=== PATIENT | female | born 1980 | race Hispanic/Latino ===

== ENCOUNTER 2019-07-16 01:34 | Observation (INO) | payer OTHER ==
[~2019-07-16] VITALS: Ht 157.5 cm; Wt 93.2 kg
[2019-07-16] MEDS ORDERED: ASPIRIN 325 MG TABLET ONE (01:46)
[2019-07-16 02:02] LABS: BASOPHILS % (AUTO) 0.8 % (0.0-5.0); EOSINOPHILS % (AUTO) 7.5 % (0.0-8.0); HEMATOCRIT 31.1 % (36-48); LYMPHOCYTES % (AUTO) 40.8 % (21.0-51.0); MEAN CORPUSCULAR HEMOGLOBIN 24.6 pg (27.0-33.0); MEAN CORPUSCULAR HGB CONC 31.8 g/dL (32.0-36.0); MEAN CORPUSCULAR VOLUME 77.2 fL (79-99); MONOCYTES % (AUTO) 9.4 % (3.0-13.0); NEUTROPHILS % (AUTO) 41.3 % (40.0-77.0); PLATELET COUNT (AUTO) 260 K/uL (130-400); RED BLOOD CELL COUNT(AUTO) 4.03 MIL/uL (4.00-5.50); RED CELL DISTRIBUTION WIDTH 15.1 % (11.0-15.5); WHITE BLOOD COUNT (AUTO) 8.8 K/uL (4.8-10.8)
[2019-07-16 02:12] LABS: CREATININE 0.8 mg/dL (0.5-1.5); INR 0.94 (0.85-1.15); POTASSIUM 4.1 mmol/L (3.5-5.1); PROTHROMBIN TIME 10.2 SEC (9.6-11.6)
[2019-07-16 02:16] LABS: ALBUMIN 3.6 g/dL (3.5-5.0); BILIRUBIN,TOTAL 0.2 mg/dL (0.2-1.0); TOTAL PROTEIN, SERUM 7.4 g/dL (6.0-8.3)
[2019-07-16 02:34] LABS: B-TYPE NATRIURETIC PEPTIDE 11 pg/mL (0-100)
[2019-07-16] MEDS ORDERED: ALBUTEROL INHALER 90MCG/INH IH ONE (03:58)
[2019-07-16] MEDS: SODIUM CHLORIDE 0.9% 1000ML 1,000 ML IV SCH (04:58)
[2019-07-16] MEDS ORDERED: MORPHINE SULFATE 2 MG/ML 1ML SYG IV PRN (05:00)
[2019-07-16] MEDS ORDERED: ONDANSETRON HCL 4 MG/2 ML VIAL IV PRN (05:00)
[2019-07-16] MEDS ORDERED: NITROGLYCERIN 0.4 MG SL TAB SL PRN (05:00)
[2019-07-16] MEDS ORDERED: ACETAMINOPHEN 325 MG TAB PO PRN ×2 (05:00)
[2019-07-16 05:55] VITALS: BP 143/56
[2019-07-16 05:59] LABS: THYROID STIMULATING HORMONE 2.61 uIU/mL (0.36-3.74)
[2019-07-16 08:00] VITALS: BP 118/69
[2019-07-16 08:56] LABS: % IRON SATURATION 3.7 % (22-44)
[2019-07-16] MEDS ORDERED: COMPOUND IV MISC 1 EACH IVSOLN MISC PRN (09:45)
[2019-07-16 11:00] VITALS: BP 115/63
[2019-07-16] MEDS: METOPROLOL TARTRATE 25 MG TAB PO SCH ×2 (12:16→20:45)
[2019-07-16] MEDS: FAMOTIDINE/PF 20 MG/2 ML VIAL IV SCH ×2 (12:17→20:45)
[2019-07-16] MEDS: ENOXAPARIN SODIUM 30 MG/0.3 ML SQ SCH (12:18)
[2019-07-16] MEDS: IRON SUCROSE COMPLEX 100 MG in SODIUM CHLORIDE 0.9% 50 ML IV SCH (13:27)
[2019-07-16 16:00] VITALS: BP 106/61
--- NOTE | 2019-07-16 17:00 | NUR ---
I RECEIVED A CALL FROM DR GIRON STATING PT OK TO BE D/C HOME FROM HIS STANDPOINT AND TO F/U AT HEART CLINIC NEXT FRIDAY FOR A STRESS TEST, THAT HER 2D ECHO WAS NOT THAT BAD; I INFORMED HIM OF MOST RECENT CARDIAC ENZYMES; I THEN CALLED DR TEJADA AND INFORMED HIM OF DR GIRON OK TO D/C AND HE STATED THAT HE WANTED PT TO STATE OVERNIGHT TO CONT MONITORING CARDIAC ENZYMES; PT HAS ANOTHER ONE DUE AT 1800; I HAVE EXPLAINED THIS TO PT AND SHE STATED SHE WICHED SHE COULD GO HOME INSTEAD BUT UNDERSTOOD NEED TO MONITOR HER HEART.
[2019-07-16 19:41] VITALS: BP 128/62
--- NOTE | 2019-07-16 20:15 | NUR ---
CRITICAL LABS TROPONIN 1.26, CALLED HOSPITALIST NOLVIA DICKERSON INFORMED OF TROPONIN LEVEL, PATIENT RESTING COMFORTABLY, NO SOB, NO C/O PAIN AT THIS TIME, TELE SHOWING SINUS RHYTHM HEART RATE 66, AIDE DICKERSON IN ROOM TO SEE AND ASSESS PATIENT WITH ORDERS
[2019-07-16 23:56] VITALS: BP 119/54
[2019-07-17] MEDS: SODIUM CHLORIDE 0.9% 1000ML 1,000 ML IV SCH (01:31)
[2019-07-17 04:00] VITALS: BP 109/60
[2019-07-17 05:23] LABS: BASOPHILS % (AUTO) 0.6 % (0.0-5.0); EOSINOPHILS % (AUTO) 7.2 % (0.0-8.0); HEMATOCRIT 34.5 % (36-48); LYMPHOCYTES % (AUTO) 30.3 % (21.0-51.0); MEAN CORPUSCULAR HEMOGLOBIN 23.8 pg (27.0-33.0); MEAN CORPUSCULAR VOLUME 76.8 fL (79-99); MONOCYTES % (AUTO) 7.9 % (3.0-13.0); NEUTROPHILS % (AUTO) 53.7 % (40.0-77.0); PLATELET COUNT (AUTO) 305 K/uL (130-400); RED BLOOD CELL COUNT(AUTO) 4.49 MIL/uL (4.00-5.50); RED CELL DISTRIBUTION WIDTH 15.1 % (11.0-15.5); WHITE BLOOD COUNT (AUTO) 8.9 K/uL (4.8-10.8)
[2019-07-17 05:54] LABS: ALBUMIN 3.7 g/dL (3.5-5.0); BILIRUBIN,TOTAL 0.3 mg/dL (0.2-1.0); CREATININE 0.8 mg/dL (0.5-1.5); POTASSIUM 3.8 mmol/L (3.5-5.1); TOTAL PROTEIN, SERUM 7.7 g/dL (6.0-8.3)
[2019-07-17 08:00] VITALS: BP 91/53
--- NOTE | 2019-07-17 08:22 | NUR ---
MD ROUNDS REPORTED ELEVATED TROPONIN LAB VALUES TO DR. GIRON. PER DR. GIRON, PATIENT REMAINS ASYMPTOMATIC AT THIS TIME. FOLLOW UP IN OFFICE ON FRIDAY FOR STRESS TEST.
[2019-07-17] MEDS: ENOXAPARIN SODIUM 30 MG/0.3 ML SQ SCH (09:00)
[2019-07-17] MEDS ORDERED: ASPIRIN 81MG TAB.CHEW PO SCH (09:00)
[2019-07-17] MEDS: METOPROLOL TARTRATE 25 MG TAB PO SCH (09:31)
[2019-07-17] MEDS: FAMOTIDINE/PF 20 MG/2 ML VIAL IV SCH (09:31)
[2019-07-17] MEDS: IRON SUCROSE COMPLEX 100 MG in SODIUM CHLORIDE 0.9% 50 ML IV SCH (09:31)
[2019-07-17] MEDS ORDERED: METO25TA6 PO ×2 (10:58)
[2019-07-17] MEDS ORDERED: NITR0.3T11 SL ×2 (10:58)
[2019-07-17] MEDS ORDERED: ASPI-1005 PO ×2 (10:58)
[2019-07-17] MEDS ORDERED: ATOR20TA65 PO ×2 (10:58)
[2019-07-17] MEDS ORDERED: FERS325 PO ×2 (10:58)
--- NOTE | 2019-07-17 11:50 | NUR ---
DISCHARGE PATIENT GIVEN DISCHARGE INSTRUCTIONS VIA TEACH BACK. 20G PIV TO RFA DISCONTINUED, TIP INTACT. TELE PACK REMOVED AND RETURNED TO TELEMETRY. E-SCRIPT TO [facility] IN [place]. PATIENT TO FOLLOW WITH PCP, GYNECOLOGISTS AND DR. GIRON FOR STRESS TEST. PATIENT INSTRUCTED TO REMAIN NPO AND DO NOT TAKE METOPROLOL PRIOR TO STRESS TEST PER JAYLA HUBER ( CARDIOLOGY ). PATIENT STABLE AT THIS TIME, DENIES ANY CHEST PAIN. PATIENT WHEELED TO ER [facility] FOR DISCHARGE BY SORAYA RAMIREZ.
[2019-07-17] MEDS ORDERED: ATORVASTATIN CALCIUM 20 MG TABLET PO SCH (21:00)
[2019-07-18] MEDS ORDERED: BUSP5TAB3 PO ×2 (19:56)
[2019-07-19] MEDS ORDERED: PANT40TA PO ×2 (13:40)
== END 2019-07-17 11:50 | disposition home or self-care (01) ==
LOC: EDH 01:34 → EDHIP 04:58 → 3DH 05:55
PROVIDERS: ADMIT Internal Medicine; ATTEND Internal Medicine
DX: R07.89 Other chest pain (principal); E66.01 Morbid (severe) obesity due to excess calories; I21.4 Non-ST elevation (NSTEMI) myocardial infarction; F41.9 Anxiety disorder, unspecified; Z87.442 Personal history of urinary calculi; Z90.49 Acquired absence of other specified parts of digestive tract; Z88.0 Allergy status to penicillin; Z91.030 Bee allergy status
CPT/HCPCS: 36415 ×2; 71045; 76856; 80053 ×2; 80061; 81025; 82550; 83540; 83550; 83690; 83880; 84443; 84484 ×4; 85025 ×2; 85378; 85610; 85730; 93005 ×5; 93306; 93356; 96365; 96366; 96372; 96375; 96376 ×2; 99285; G0378 ×21; J1650; J1756; J3490 ×3

== ENCOUNTER 2019-07-18 02:42 | Observation (INO) | payer OTHER ==
[~2019-07-18] VITALS: Ht 157.5 cm; Wt 92.7 kg
[~2019-07-18 02:42] MED LIST: ASPI-1005 PO; ATOR20TA65 PO; FERS325 PO; METO25TA6 PO; NITR0.3T11 SL
[2019-07-18] MEDS ORDERED: ASPIRIN 325 MG TABLET ONE (02:50)
[2019-07-18 03:41] LABS: BASOPHILS % (AUTO) 0.6 % (0.0-5.0); EOSINOPHILS % (AUTO) 4.7 % (0.0-8.0); LYMPHOCYTES % (AUTO) 21.3 % (21.0-51.0); MEAN CORPUSCULAR HEMOGLOBIN 24.2 pg (27.0-33.0); MEAN CORPUSCULAR HGB CONC 31.5 g/dL (32.0-36.0); MEAN CORPUSCULAR VOLUME 76.7 fL (79-99); MONOCYTES % (AUTO) 8.3 % (3.0-13.0); NEUTROPHILS % (AUTO) 64.6 % (40.0-77.0); PLATELET COUNT (AUTO) 287 K/uL (130-400); RED CELL DISTRIBUTION WIDTH 15.5 % (11.0-15.5); WHITE BLOOD COUNT (AUTO) 10.7 K/uL (4.8-10.8)
[2019-07-18 03:54] LABS: INR 0.92 (0.85-1.15); PARTIAL THROMBOPLASTIN TIME 30.4 SEC (26.3-35.5)
[2019-07-18 03:56] LABS: CREATININE 0.8 mg/dL (0.5-1.5); POTASSIUM 3.4 mmol/L (3.5-5.1)
[2019-07-18 04:00] LABS: BILIRUBIN,TOTAL 0.1 mg/dL (0.2-1.0); TOTAL PROTEIN, SERUM 8.2 g/dL (6.0-8.3)
[2019-07-18 04:07] LABS: B-TYPE NATRIURETIC PEPTIDE 47 pg/mL (0-100)
[2019-07-18] MEDS ORDERED: ENOXAPARIN SODIUM 100 MG/1 ML SQ ONE (04:45)
[2019-07-18] MEDS: SODIUM CHLORIDE 0.9% 1000ML 1,000 ML IV SCH ×2 (07:41→21:39)
[2019-07-18] MEDS ORDERED: ACETAMINOPHEN 325 MG TAB PO PRN ×2 (07:45)
[2019-07-18] MEDS ORDERED: MORPHINE SULFATE 2 MG/ML 1ML SYG IV PRN (07:45)
[2019-07-18] MEDS ORDERED: ONDANSETRON HCL 4 MG/2 ML VIAL IV PRN (07:45)
[2019-07-18] MEDS ORDERED: POTASSIUM CHLORIDE 10MEQ/100ML 100 ML IV PRN (08:00)
[2019-07-18] MEDS ORDERED: LIDOCAINE HCL-MPF 1% 2ML VIAL IV PRN (08:00)
[2019-07-18] MEDS ORDERED: POTASSIUM CHLORIDE 20 MEQ ERTAB PO PRN (08:00)
[2019-07-18] MEDS ORDERED: POTASSIUM CHLORIDE 10% ELIXIR 20 MEQ/15 ML UDCUP PO PRN (08:00)
[2019-07-18] MEDS ORDERED: NITROGLYCERIN 0.4 MG SL TAB SL PRN (08:00)
[2019-07-18] MEDS: FAMOTIDINE/PF 20 MG/2 ML VIAL IV SCH ×2 (09:00→21:29)
[2019-07-18] MEDS: METOPROLOL TARTRATE 25 MG TAB PO SCH ×2 (09:00→21:30)
[2019-07-18] MEDS ORDERED: ENOXAPARIN SODIUM 30 MG/0.3 ML SQ SCH (09:00)
[2019-07-18] MEDS ORDERED: METOPROLOL TARTRATE 25 MG TAB ONE (10:15)
[2019-07-18] MEDS ORDERED: SODIUM CHLORIDE 0.9% 1000ML 1,000 ML IV ONE (10:16)
[2019-07-18] MEDS ORDERED: FAMOTIDINE/PF 20 MG/2 ML VIAL IV ONE (10:16)
[2019-07-18] MEDS: INSULIN HUMULIN R 100 UNIT/ML 3ML SQ SCH ×3 (11:30→21:00)
[2019-07-18] MEDS ORDERED: REGADENOSON 0.4 MG/5 ML PF SYG IVP SCH (12:45)
[2019-07-18] MEDS ORDERED: POTASSIUM CHLORIDE 10% ELIXIR 20 MEQ/15 ML UDCUP ONE (15:13)
[2019-07-18] MEDS ORDERED: SODIUM CHLORIDE 0.9% 500ML 500 ML IV SCH (16:27)
[2019-07-18 17:32] LABS: HEMATOCRIT 33.2 % (36-48); MEAN CORPUSCULAR HEMOGLOBIN 24.2 pg (27.0-33.0); MEAN CORPUSCULAR HGB CONC 31.3 g/dL (32.0-36.0); MEAN CORPUSCULAR VOLUME 77.2 fL (79-99); RED BLOOD CELL COUNT(AUTO) 4.3 MIL/uL (4.00-5.50); RED CELL DISTRIBUTION WIDTH 15.2 % (11.0-15.5); WHITE BLOOD COUNT (AUTO) 8.6 K/uL (4.8-10.8)
[2019-07-18 17:42] LABS: CREATININE 0.7 mg/dL (0.5-1.5); POTASSIUM 4.3 mmol/L (3.5-5.1)
[2019-07-18 17:43] LABS: INR 0.99 (0.85-1.15); PROTHROMBIN TIME 10.7 SEC (9.6-11.6)
[2019-07-18 17:45] VITALS: BP 139/74
[2019-07-18 19:42] VITALS: BP 126/77
[2019-07-18] MEDS ORDERED: BUSP5TAB3 PO (19:56)
[2019-07-18] MEDS ORDERED: ATORVASTATIN CALCIUM 10 MG TABLET PO SCH (21:00)
[2019-07-18 23:43] VITALS: BP 103/57
[2019-07-19] VITALS (9 sets, daily range): BP systolic 113–137; BP diastolic 53–76
[2019-07-19 05:12] LABS: BASOPHILS % (AUTO) 0.6 % (0.0-5.0); EOSINOPHILS % (AUTO) 5.6 % (0.0-8.0); HEMATOCRIT 33.9 % (36-48); LYMPHOCYTES % (AUTO) 31.4 % (21.0-51.0); MEAN CORPUSCULAR HEMOGLOBIN 23.9 pg (27.0-33.0); MEAN CORPUSCULAR VOLUME 77.2 fL (79-99); MONOCYTES % (AUTO) 8.7 % (3.0-13.0); NEUTROPHILS % (AUTO) 53.2 % (40.0-77.0); PLATELET COUNT (AUTO) 300 K/uL (130-400); RED BLOOD CELL COUNT(AUTO) 4.39 MIL/uL (4.00-5.50); RED CELL DISTRIBUTION WIDTH 15.5 % (11.0-15.5); WHITE BLOOD COUNT (AUTO) 7.9 K/uL (4.8-10.8)
[2019-07-19 05:30] LABS: ALBUMIN 3.6 g/dL (3.5-5.0); ASPARTATE AMINOTRANSFERASE 9 U/L (10-37); BILIRUBIN,TOTAL 0.5 mg/dL (0.2-1.0); CARBON DIOXIDE 23 mmol/L (21-32); CHLORIDE 102 mmol/L (101-111); CREATININE 0.7 mg/dL (0.5-1.5); GLOMERULAR FILTR. RATE CALC 99 mL/min (>60); GLUCOSE,RANDOM 97 mg/dL (70-105); SODIUM SERUM 136 mmol/L (136-145); TOTAL PROTEIN, SERUM 7.6 g/dL (6.0-8.3); UREA NITROGEN, BLOOD 12 mg/dL (7-18)
[2019-07-19 05:39] LABS: ALANINE AMINOTRANSFERASE < 6 U/L (12-78)
[2019-07-19] MEDS: INSULIN HUMULIN R 100 UNIT/ML 3ML SQ SCH ×3 (06:31→16:30)
--- NOTE | 2019-07-19 07:30 | NUR ---
NOTE AAOX3. DNEIES PAIN OR DISCOMFORT. NO CHEST PAIN NO N/V. STATES SHE HAS BEEN HAVING CHEST PAIN THAT WAKES HER UP DURING THE NIGHT. SHE WAS SEEN HERE LAST WEEK AND WENT HOME CAME BACK NEXT DAY. HAD LEXISCAN DONE AND WITH CARDIAC ENZYMES ELEVATED THIS TIME. GOING FOR HEART CATH WITH DR DEE TODAY. [employer] SEND WITH SECURITY, REST OF BELONG[employer].
[2019-07-19] MEDS: METOPROLOL TARTRATE 25 MG TAB PO SCH (07:46)
[2019-07-19] MEDS: FAMOTIDINE/PF 20 MG/2 ML VIAL IV SCH (07:46)
[2019-07-19] MEDS ORDERED: ENOXAPARIN SODIUM 30 MG/0.3 ML SQ SCH (09:00)
[2019-07-19] MEDS ORDERED: IOHEXOL 350 MG/ML 100ML INFUS..BTL IV ONE (09:41)
[2019-07-19] MEDS ORDERED: IOHEXOL-350 50ML VIAL IV ONE (09:41)
[2019-07-19] MEDS ORDERED: NITROGLYCERIN 2 MG/VIAL VIAL IV ONE (09:41)
[2019-07-19] MEDS ORDERED: BIVALIRUDIN 250 MG/VIAL IV ONE (09:41)
[2019-07-19] MEDS ORDERED: LIDOCAINE HCL 2% 20ML ONE (09:42)
--- NOTE | 2019-07-19 09:50 | NUR ---
NOTE OUT OF ROOM FOR HEART CATH. STABLE UPON LEAVING WITH CELL BIOLOGY SCIENTIST NURSES.
--- NOTE | 2019-07-19 10:12 | NUR ---
DCP: HOME Sw met with pt who states she lives with her [phone]. Pt works, is independent of all ADLS, no DME or in home care services. PCP is Rodney Moyer and [facility] for rx. Plan is home at hi. CM to follow and assist as needed Addendum: 07/19/19 at 1014 by LESLEE CROEW SS Amended: Links added.
[2019-07-19] MEDS ORDERED: MIDAZOLAM HCL 1 MG/ML 2ML VIAL ONE (10:18)
[2019-07-19] MEDS ORDERED: FENTANYL CITRATE PF 50 MCG/1 ML 2ML VIAL ONE (10:18)
--- NOTE | 2019-07-19 10:35 | NUR ---
CHART REVIEWED, [facility] UPLOADED note made of [facility] today, will review post procedurs orders/notes Addendum: 07/19/19 at 1036 by NANCY JOHNSON RN CM Amended: Links added.
[2019-07-19] MEDS ORDERED: SODIUM CHLORIDE 0.9% 1000ML 1,000 ML IV SCH (10:54)
--- NOTE | 2019-07-19 11:05 | NUR ---
NOTE REPORT CALLED FROM [employer] BY ALICIA. REFER TO REPORT FOR DETAILS. PATIENT TOLERATED. WAS MEDICATED FOR ANXIETY AND PAIN. WILL BE MEDICALLY TREATED.
[2019-07-19] MEDS: SODIUM CHLORIDE 0.9% 1000ML 1,000 ML IV SCH (13:03)
[2019-07-19] MEDS ORDERED: PANT40TA PO (13:40)
--- NOTE | 2019-07-19 18:30 | NUR ---
note DISCHARGE INSTRUCTIONS GIVEN TO PATIENT AT THIS TIME. VERBALIZED UNDERSTANDING. REFER TO CHART FOR DETAILS. Addendum: 07/19/19 at 1838 by CARLOS HOPE RN RIGHT INGUINAL DRESSING D/I. NO HEMATOMA, NO BLEEDING NOTED. RIGHT FEMORAL PULSE PRESENT PALPABLE STRONG AND RIGHT POPLITEAL AND PEDAL PULSES STRONG PALPABLE. RLE WARM TO TOUCH GOOD CAPILLARY REFILL.
[2019-07-19] MEDS ORDERED: PANTOPRAZOLE SODIUM 40 MG TABLET.DR ONE (18:31)
== END 2019-07-19 18:30 | disposition home or self-care (01) ==
LOC: EDH 02:42 → EDHIP 07:41 → 3CH 17:08
PROVIDERS: ADMIT Hospitalist; ATTEND Hospitalist
DX: I20.0 Unstable angina (principal); F41.9 Anxiety disorder, unspecified; Z98.84 Bariatric surgery status; Z87.442 Personal history of urinary calculi; Z88.0 Allergy status to penicillin; Z91.030 Bee allergy status; Z90.49 Acquired absence of other specified parts of digestive tract
CPT/HCPCS: 36415 ×2; 71045; 78452; 80048; 80053 ×2; 81025; 82550; 82948 ×2; 83690; 83735; 83880; 84484 ×4; 85025 ×2; 85027; 85610 ×2; 85730 ×2; 93005 ×3; 93017; 93458; 96374; 96376; 99291; A9500 ×2; C1894 ×2; G0378 ×36; J1644; J1650; J2250; J2785; J3010; J3490 ×5; J7030; J7040; Q9965; Q9967 ×2; 99156; 99157; J0583

== ENCOUNTER 2019-07-23 00:21 | Emergency (ER) | payer OTHER ==
[2019-07-23] MEDS ORDERED: NITROGLYCERIN 1GM/1 INCH PACKET TD ONE (00:38)
[2019-07-23] MEDS ORDERED: IOHEXOL-350 75 ML VIAL IV ONE (01:05)
[2019-07-23] MEDS ORDERED: SODIUM CHLORIDE 0.9% 1000ML 2,000 ML IV ONE (02:15)
[2019-07-23] MEDS ORDERED: METOCLOPRAMIDE 10 MG/2 ML VIAL ONE (03:07)
[2019-07-23] MEDS ORDERED: FAMOTIDINE/PF 20 MG/2 ML VIAL IV ONE (03:08)
== END 2019-07-23 03:43 | disposition home or self-care (01) ==
LOC: EDH 00:21
DX: R07.89 Other chest pain (principal); R10.13 Epigastric pain; R00.2 Palpitations; F41.9 Anxiety disorder, unspecified; Z88.0 Allergy status to penicillin; Z91.030 Bee allergy status; Z98.84 Bariatric surgery status; Z90.49 Acquired absence of other specified parts of digestive tract
CPT/HCPCS: 36415; 71045; 71275; 80053; 81001; 82550; 83690; 83880; 84484 ×2; 85025; 85610; 85730; 87077; 87088; 87186; 93005 ×2; 96374; 96375; 99285; J2765; J3490; J7030; Q9967

== ENCOUNTER → 2019-08-04 | Outpatient (CLI) | payer OTHER ==
[~2019-08-04] MED LIST changes: +BUSP5TAB3 PO; +PANT40TA PO
== END | disposition home or self-care (01) ==
LOC: RAH 11:02
PROVIDERS: ATTEND Family Medicine
DX: Z12.31 Encounter for screening mammogram for malignant neoplasm of breast (principal)
CPT/HCPCS: 77067

== ENCOUNTER 2020-12-15 14:59 | Emergency (ER) | payer BC, OTHER ==
[~2020-12-15] VITALS: Ht 162.6 cm; Wt 95.3 kg
[2020-12-15] MEDS ORDERED: ALBUTEROL 0.083% 2.5 MG/3 ML INH IH ONE (15:13)
[2020-12-15] MEDS ORDERED: EPINEPHRINE PF 1MG AMP ONE (15:18)
[2020-12-15] MEDS ORDERED: DiphenhydrAMINE HCL 50 MG/ML VIAL ONE (15:18)
[2020-12-15] MEDS ORDERED: SOLU-MEDROL 125MG VIAL ONE (15:19)
[2020-12-15] MEDS ORDERED: LORATADINE 10 MG TABLET ONE (15:19)
[2020-12-15] MEDS ORDERED: DiphenhydrAMINE HCL 50 MG/ML VIAL IV SCH (15:30)
[2020-12-15] MEDS ORDERED: LORATADINE 10 MG TABLET PO SCH (15:30)
[2020-12-15] MEDS ORDERED: SOLU-MEDROL 125MG VIAL IVP SCH (15:30)
[2020-12-15] MEDS ORDERED: EPINEPHRINE PF 1MG AMP IM SCH (15:30)
[2020-12-15] MEDS ORDERED: EPIN0.3P3 IJ (16:26)
[2020-12-15 16:30] VITALS: BP 115/50
== END 2020-12-15 16:46 | disposition home or self-care (01) ==
LOC: EDH 14:59
DX: T78.09XA Anaphylactic reaction due to other food products, initial encounter (principal); Z79.52 Long term (current) use of systemic steroids; Z79.82 Long term (current) use of aspirin; Z79.899 Other long term (current) drug therapy; Z87.442 Personal history of urinary calculi; Z88.0 Allergy status to penicillin
CPT/HCPCS: 94640; 96372; 96374; 96375; 99291; J0171; J1200; J2930